=== PATIENT | male | born 1975 | race Hispanic/Latino ===

== ENCOUNTER 2020-03-27 15:12 | Emergency (ER) | payer BC ==
--- NOTE | 2020-03-27 16:01 | RAD REPORT ---
EXAM DESCRIPTION: RAD - Chest Single View - 03/27/2020 3:53 pm CLINICAL HISTORY: Cough;Fever Chest pain. COMPARISON: No comparisons FINDINGS: Portable technique limits examination quality. The lungs are underinflated but grossly clear. The heart is normal in size. No displaced fractures. IMPRESSION: Underinflated lungs.
--- NOTE | 2020-03-27 17:37 | ER ---
Nurse's Notes [facility] Name: Rolo Lockett Age: 45 yrs Sex: Male : 1975 Arrival Date: 03/27/2020 Time: 15:17 Bed 13 Private MD: Diagnosis: Acute upper respiratory infection, unspecified Presentation: 03/27 15:42 Chief complaint: Patient states: cough, fever, sore throat, SOB with talking, reports dm5 temp of 101.9 started last night. Coronavirus screen: Surgical mask placed on patient. Patient moved to private room, placed in contact and droplet isolation with eye protection until further assessment. Patient reports a cough. Patient reports shortness of breath or difficulty breathing. Patient reports a measured and/or subjective temperature greater than 100.4F. Patient denies travel on a cruise ship or to a country the [facility] [place]NOTE 2[place] currently lists as an affected area. Patient denies contact with known and/or suspected case of COVID-19. Ebola Screen: Patient negative for fever greater than or equal to 101.5 degrees Fahrenheit, and additional compatible Ebola Virus Disease symptoms Patient denies exposure to infectious person. Patient denies travel to an Ebola-affected area in the 21 days before illness onset. No symptoms or risks identified at this time. Onset of symptoms was March 26, 2020. 15:42 Method Of Arrival: Ambulatory dm5 15:42 Acuity: BETTY 3 dm5 18:03 Initial Sepsis Screen: Does the patient meet any 2 criteria? No. Patient's initial sepsis screen is negative. Does the patient have a suspected source of infection? No. Patient's initial sepsis screen is negative. Risk Assessment: Do you want to hurt yourself or someone else? Patient reports no desire to harm self or others. Triage Assessment: 17:45 Respiratory: the patient has moderate shortness of breath. 17:45 Respiratory: Onset: The symptoms/episode began/occurred yesterday. Historical: - Allergies: 15:44 No Known Allergies; dm5 - Home Meds: 15:44 None [Active]; dm5 - PMHx: 15:44 None; dm5 - PSHx: 15:44 None; dm5 - Immunization history:: Adult Immunizations unknown. - Social history:: Smoking status: unknown. Screenin:01 Abuse screen: Denies threats or abuse. Nutritional screening: No deficits noted. Tuberculosis screening: No symptoms or risk factors identified. Fall Risk None identified. Assessment: 16:00 General: Appears in no apparent distress. Behavior is calm, cooperative, appropriate ah for age, Reports chills for 12-24 hours, fever for 12-24 hours. Pain: Denies pain. Neuro: Level of Consciousness is awake, alert, obeys commands, Oriented to person, place, time, situation, Appropriate for age. Cardiovascular: Denies chest pain, Capillary refill < 3 seconds Patient's skin is warm and dry. Cardiovascular: Pulses are palpable in right radial artery and left radial artery. Respiratory: Airway is patent Respiratory effort is even, unlabored, Respiratory pattern is regular, symmetrical. GI: Reports nausea, Patient currently denies vomiting. Derm: Skin is intact, is healthy with good turgor, Skin is dry. 17:50 Reassessment: Discharge instructions given to Pt. Pt advised to quarantine until called with Covid 19 results. Pt voiced understanding. Vital Signs: 15:42 Weight 120.66 kg; Height 6 ft. 0 in. (182.88 cm); dm5 17:35 BP 135 / 95; Pulse 103; Resp 18; Temp 103.1; Pulse Ox 97% ; ah 15:42 Body Mass Index 36.08 (120.66 kg, 182.88 cm) dm5 ED Course: 15:17 Patient arrived in ED. fj1 15:22 Amna Cool [facility]NP-C [facility]. kb 15:22 Julio C Baez MD is Attending Physician. kb 15:43 Triage completed. dm5 15:45 Qi Connors, RN is Primary Nurse. 15:53 Chest Single View XRAY In Process Unspecified. EDMS 16:00 Flu and/or RSV swab sent to lab. Strep swab sent to lab. Patient swabbed for COVID-19. jp3 Patient maintains SpO2 saturation greater than 95% on room air. 16:07 Safety checks: Door open/sign placed on door: no. Bed in low position. Call light in jp3 reach. Side rails up X 1. Verbal reassurance given. 17:45 No provider procedures requiring assistance completed. Patient did not have IV access during this emergency room visit. 17:45 Arm band placed on right wrist. Administered Medications: 17:42 Drug: Tylenol 1000 mg Route: PO; 18:05 Follow up: Response: Medication administered at discharge. Outcome: 17:36 Discharge ordered by . dilip 17:50 Discharged to home ambulatory. 17:50 Condition: good 17:50 Discharge instructions given to patient, Instructed on discharge instructions, follow up and referral plans. Demonstrated understanding of instructions, follow-up care. 18:07 Patient left the ED. Addendum: 03/31/2020 18:50 Addendum: COVID-19 Result: Positive result giiven to ED physician to notify pt. h b Physician was able to contact pt and pt was notified of positive COVID-19 swab result. Physician answered pt questions. Signatures: Dispatcher [employer] EDMS Amna Cool, INTERNSHIP COORDINATOR-C INTERNSHIP COORDINATOR-Radha German, RN RN dm5 Augusta Charles, RN RN Gino Stevens jp3 Marciano Zazueta fj1 Qi Connors, RN RN
--- NOTE | 2020-03-27 17:37 | EDPHYS ---
Physician Documentation [facility] Name: Rolo Lockett Age: 45 yrs Sex: Male : 1975 Arrival Date: 03/27/2020 Time: 15:17 Bed 13 Private MD: ED Physician Julio C Baez HPI: 03/27 15:34 This 45 yrs old Male presents to ER via Unassigned with complaints of Fever, kb Shortness Of Breath, Cough, Weakness. 15:34 The patient or guardian reports cough, that is intermittent, described as mild, with no kb sputum, difficulty breathing, flu symptoms, low-grade fever. Onset: The symptoms/episode began/occurred yesterday. Severity of symptoms: At their worst the symptoms were mild, moderate, in the emergency department the symptoms are unchanged. Modifying factors: The symptoms are alleviated by nothing, the symptoms are aggravated by nothing. Associated signs and symptoms: Pertinent positives: fever, sore throat, Pertinent negatives: chest pain, diarrhea, ear ache, nausea, rhinorrhea, vomiting. The patient has not experienced similar symptoms in the past. The patient has not recently seen a physician. Pt reports cough, shortness of breath on exertion and when talking, fever (101.9 TMAX), sore throat and hoarseness that started yesterday. . Historical: - Allergies: 15:44 No Known Allergies; dm5 - Home Meds: 15:44 None [Active]; dm5 - PMHx: 15:44 None; dm5 - PSHx: 15:44 None; dm5 - Immunization history:: Adult Immunizations unknown. - Social history:: Smoking status: unknown. ROS: 15:34 Cardiovascular: Negative for chest pain, palpitations, and edema, Abdomen/GI: Negative kb for abdominal pain, nausea, vomiting, diarrhea, and constipation, MS/Extremity: Negative for injury and deformity, Skin: Negative for injury, rash, and discoloration, Neuro: Negative for headache, weakness, numbness, tingling, and seizure. 15:34 Constitutional: Positive for chills, fatigue, fever, malaise. 15:34 ENT: Positive for sore throat. 15:34 Respiratory: Positive for cough, dyspnea on exertion, Negative for hemoptysis, orthopnea, pleurisy, shortness of breath, sputum production, wheezing. Exam: 15:34 Constitutional: This is a well developed, well nourished patient who is awake, alert, kb and in no acute distress. Head/Face: Normocephalic, atraumatic. ENT: Nares patent. No nasal discharge, no septal abnormalities noted. Tympanic membranes are normal and external auditory canals are clear. Oropharynx with no redness, swelling, or masses, exudates, or evidence of obstruction, uvula midline. Mucous membranes moist. Neck: Trachea midline, no thyromegaly or masses palpated, and no cervical lymphadenopathy. Supple, full range of motion without nuchal rigidity, or vertebral point tenderness. No Meningismus. Chest/axilla: Normal chest wall appearance and motion. Nontender with no deformity. No lesions are appreciated. Cardiovascular: Regular rate and rhythm with a normal S1 and S2. No gallops, murmurs, or rubs. Normal PMI, no JVD. No pulse deficits. Respiratory: Lungs have equal breath sounds bilaterally, clear to auscultation and percussion. No rales, rhonchi or wheezes noted. No increased work of breathing, no retractions or nasal flaring. Abdomen/GI: Soft, non-tender, with normal bowel sounds. No distension or tympany. No guarding or rebound. No evidence of tenderness throughout. Back: No spinal tenderness. No costovertebral tenderness. Full range of motion. Skin: Warm, dry with normal turgor. Normal color with no rashes, no lesions, and no evidence of cellulitis. MS/ Extremity: Pulses equal, no cyanosis. Neurovascular intact. Full, normal range of motion. Neuro: Awake and alert, GCS 15, oriented to person, place, time, and situation. Cranial nerves II-XII grossly intact. Motor strength 5/5 in all extremities. Sensory grossly intact. Cerebellar exam normal. Normal gait. Vital Signs: 15:42 Weight 120.66 kg; Height 6 ft. 0 in. (182.88 cm); dm5 17:35 BP 135 / 95; Pulse 103; Resp 18; Temp 103.1; Pulse Ox 97% ; ah 15:42 Body Mass Index 36.08 (120.66 kg, 182.88 cm) dm5 MDM: 15:22 Patient medically screened. kb 15:38 Data reviewed: vital signs, nurses notes. kb 16:25 Data interpreted: Pulse oximetry: on room air is 100 %. Interpretation: normal. kb Counseling: I had a detailed discussion with the patient and/or guardian regarding: the historical points, exam findings, and any diagnostic results supporting the discharge/admit diagnosis, lab results, radiology results, the need for outpatient follow up, a family practitioner. 03/27 15:33 Order name: Strep; Complete Time: 16:18 kb 03/27 15:33 Order name: COVID-19 kb 03/27 15:33 Order name: Chest Single View XRAY; Complete Time: 16:03 kb 03/27 15:38 Order name: Flu; Complete Time: 16:25 kb 03/27 16:18 Order name: Throat Culture EDNJ 03/27 16:51 Order name: Vital Signs; Complete Time: 17:41 kb Administered Medications: 17:42 Drug: Tylenol 1000 mg Route: PO; 18:05 Follow up: Response: Medication administered at discharge. Disposition: 18:32 Co-signature as Attending Physician, Julio C Baez MD. [facility] Disposition: 03/27/20 17:36 Discharged to Home. Impression: Acute upper respiratory infection, unspecified. - Condition is Stable. - Discharge Instructions: Viral Respiratory Infection, [id number], COVID-19. - Medication Reconciliation Form, Thank You Letter, Antibiotic Education, Prescription Opioid Use form. - Follow up: Emergency Department; When: As needed; Reason: Worsening of condition. Follow up: Private Physician; When: 2 - 3 days; Reason: Recheck today's complaints, Continuance of care, Re-evaluation by your physician. Signatures: Dispatcher [employer] EDNJ Amna Cool, BOGDAN-C Radha Gupta, RN RN [email or web address] Julio C Baez MD MD me2 Qi Connors, RN RN Corrections: (The following items were deleted from the chart) 18:06 17:36 03/27/2020 17:36 Discharged to Home. Impression: Acute upper respiratory ah infection, unspecified. Condition is Stable. Discharge Instructions: Viral Respiratory Infection, [id number], COVID-19. Forms are Medication Reconciliation Form, Thank You Letter, Antibiotic Education, Prescription Opioid Use. Follow up: Emergency Department; When: As needed; Reason: Worsening of condition. Follow up: Private Physician; When: 2 - 3 days; Reason: Recheck today's complaints, Continuance of care, Re-evaluation by your physician. kb
[2020-03-27] MEDS ORDERED: ACETAMINOPHEN 500 MG TAB ONE (17:47)
== END 2020-03-27 18:07 | disposition home or self-care (01) ==
LOC: ER 15:12
DX: U07.1 COVID-19 (principal); J06.9 Acute upper respiratory infection, unspecified
CPT/HCPCS: 87070; 87081; 87804 ×2; 71045; 99284; U0001